=== PATIENT | female | born 1965 | race Caucasian/White ===

== ENCOUNTER 2018-07-22 12:31 | Outpatient (REF) | payer MEDICARE, MEDICAID, SELFPAY ==
--- NOTE | 2018-07-22 12:40 | PAPFT_PTH ---
PATIENT: Nubia Crump I LOC: [facility] U#:[id number] AGE/SX: 53/F ROOM: RE07/22/[address]: Crow Montiel : 1965 BED: DIS: 07/22/2018 SPEC #: [id number] RECD: 07/22/18 18:00 STATUS: MONIKA RELoreta #: [id number] SHAWN: 07/22/18 12:[address]: Crow Montiel DEPT: [facility] Cytology RECD BY: Anitha Velazco Tissues: 1 - CX/ENDOCX FOR PAP SMEARS Procedures: PAP THIN PREP/[facility] Screening HPV DNA PROBE Comments: [id number]
[2018-07-22 19:07] LABS: HCT 46.5 % (36.0-46.0); HGB 15.6 g/dL (12.0-15.5); Mean Corp. HGB Concentration 33.5 g/dL (32.0-36.0); Mean Corpuscular Volume 89.4 fL (80-95); Mean Platelet Volume 11.5 fL (8.0-11.0); Platelet Count 331 x1000/uL (130-400)
[2018-07-22 19:25] LABS: ALT 24 U/L (12-78); AST 26 U/L (15-37); Albumin 4.1 g/dL (3.4-5.0); Alkaline Phosphatase 102 U/L (46-116); Anion Gap 9.4 mmol/L (3-11); BUN 14 mg/dL (7-18); Bilirubin, Total 0.8 mg/dL (0.2-1.0); CO2 29.6 mmol/L (21.0-32.0); CREATININE 0.83 mg/dL (0.55-1.02); Calcium 9.7 mg/dL (8.5-10.1); Chloride 101 mmol/L (98-107); Glucose 92 mg/dL (70-100); Potassium 4.4 mmol/L (3.5-5.1); Sodium 140 mmol/L (136-145); Total Protein 7.7 g/dL (6.4-8.2)
[2018-07-22 19:26] LABS: Prothrombin Time 9.8 sec (9.3-11.0)
[2018-07-24 16:28] LABS: HCV RNA Detection Quantitative Undetected IU/mL (UNDECT)
== END 2018-07-22 12:51 ==
LOC: NCHCN 12:31
PROVIDERS: PCP Family Medicine; Visit Provider Family Medicine
DX: K74.60 Unspecified cirrhosis of liver (principal); Z12.4 Encounter for screening for malignant neoplasm of cervix; Z11.51 Encounter for screening for human papillomavirus (HPV); Z87.19 Personal history of other diseases of the digestive system
CPT/HCPCS: 80053; 85027; 88142; 85610; 87522; 87624

== ENCOUNTER 2018-11-12 15:48 | Outpatient (REF) | payer MEDICARE, MEDICAID, SELFPAY ==
[2018-11-12 19:34] LABS: Magnesium 2.3 mg/dL (1.8-2.4)
[2018-11-12 19:54] LABS: TSH (W/Ref FT4) 0.15 uIU/mL (0.36-3.74)
[2018-11-12 20:14] LABS: FREE T4 1.44 ng/dL (0.76-1.46)
== END 2018-11-12 16:08 ==
LOC: NCHCN 15:48
PROVIDERS: PCP Family Medicine; Visit Provider Family Medicine
DX: R25.2 Cramp and spasm (principal); R00.0 Tachycardia, unspecified
CPT/HCPCS: 83735; 84439; 84443

== ENCOUNTER 2019-04-08 15:28 | Outpatient (REF) | payer MEDICARE, MEDICAID, SELFPAY ==
[2019-04-08 19:32] LABS: HCT 47.4 % (36.0-46.0); HGB 15.9 g/dL (12.0-15.5); Mean Corp. HGB Concentration 33.5 g/dL (32.0-36.0); Mean Corpuscular Hemoglobin 30.6 pg (27.0-33.0); Mean Corpuscular Volume 91.3 fL (80-95); Mean Platelet Volume 10.9 fL (8.0-11.0); Platelet Count 379 x1000/uL (130-400); RBC 5.19 m/cumm (4.00-5.20); White Blood Cell Count 7.84 k/cumm (4.4-10.8)
[2019-04-08 19:43] LABS: ALT 18 U/L (14-59); AST 18 U/L (15-37); Alkaline Phosphatase 91 U/L (46-116); Anion Gap 8.3 mmol/L (3-11); BUN 18 mg/dL (7-18); Bilirubin, Total 0.7 mg/dL (0.2-1.0); CO2 30.7 mmol/L (21.0-32.0); CREATININE 0.79 mg/dL (0.55-1.02); Calcium 9.4 mg/dL (8.5-10.1); Chloride 103 mmol/L (98-107); Glucose 100 mg/dL (74-106); Potassium 4.5 mmol/L (3.5-5.1); Sodium 142 mmol/L (136-145); TSH (W/Ref FT4) 1.33 uIU/mL (0.36-3.74); Total Protein 7.5 g/dL (6.4-8.2)
== END 2019-04-08 15:48 ==
LOC: NCHCN 15:28
PROVIDERS: PCP Family Medicine; Visit Provider Family Medicine
DX: E05.90 Thyrotoxicosis, unspecified without thyrotoxic crisis or storm (principal); K74.60 Unspecified cirrhosis of liver
CPT/HCPCS: 80053; 85027; 84443

== ENCOUNTER 2019-04-13 00:39 | Outpatient (CLI) | payer MEDICARE, MEDICAID, SELFPAY ==
--- NOTE | 2019-04-13 07:23 | DI.US_ITS ---
EXAM: US ABDOMEN CLINICAL HISTORY: CIRRHOSIS, K74.60, HCC SCREENING TECHNIQUE: Ultrasound abdomen performed using standard protocol. COMPARISON: ABDOMEN ULTRASOUND (P) from 05/21/2017 FINDINGS: LIVER: There is increased echogenicity consistent with fatty infiltration. No hepatic mass is presen t. Liver is normal in size. There is hepatopetal flow through the portal vein. GALLBLADDER: No evidence of cholelithiasis. No evidence of wall thickening. No pericholecystic fluid identified. KIDNEYS: Kidneys are symmetric in size. No evidence of renal calculi. No evidence of hydronephrosis. There is a 1.2 centimeters cyst in the superior pole of the left kidney. BILIARY SYSTEM: Common bile duct measures up to 1 centimeter. This is unchanged compared to the prio r examination. SALINAS'S SIGN: Negative. PANCREAS: Normal where visualized. SPLEEN: Not enlarged. ABDOMINAL AORTA AND IVC: Visualized portions normal caliber. ASCITES: None seen. IMPRESSION: 1. Hepatic steatosis. No evidence of a hepatic mass. 2. Stable dilatation of the bile duct.
== END 2019-04-13 00:59 ==
PROVIDERS: PCP Family Medicine; Visit Provider Family Medicine
DX: K74.60 Unspecified cirrhosis of liver (principal); K76.0 Fatty (change of) liver, not elsewhere classified; N28.1 Cyst of kidney, acquired; K83.8 Other specified diseases of biliary tract
CPT/HCPCS: 76700

== ENCOUNTER 2019-10-21 16:37 | Outpatient (REF) | payer MEDICARE, MEDICAID, SELFPAY ==
[2019-10-21 19:32] LABS: HCT 48.1 % (36.0-46.0); Mean Corp. HGB Concentration 33.3 g/dL (32.0-36.0); Mean Corpuscular Hemoglobin 30.1 pg (27.0-33.0); Mean Corpuscular Volume 90.4 fL (80-95); Mean Platelet Volume 11.9 fL (8.0-11.0); Platelet Count 435 x1000/uL (130-400); RBC 5.32 m/cumm (4.00-5.20); RBC Distribution Width 13.9 % (11.7-14.6); White Blood Cell Count 10.53 k/cumm (4.4-10.8)
[2019-10-21 20:25] LABS: ALT 35 U/L (14-59); AST 37 U/L (15-37); Albumin 3.9 g/dL (3.4-5.0); Alkaline Phosphatase 92 U/L (46-116); Anion Gap 7.1 mmol/L (3-11); BUN 13 mg/dL (7-18); Bilirubin, Total 0.9 mg/dL (0.2-1.0); CO2 32.9 mmol/L (21.0-32.0); CREATININE 0.94 mg/dL (0.55-1.02); Calcium 9.2 mg/dL (8.5-10.1); Chloride 98 mmol/L (98-107); Glucose 105 mg/dL (74-106); Potassium 4.2 mmol/L (3.5-5.1); Sodium 138 mmol/L (136-145); Total Protein 7.4 g/dL (6.4-8.2)
== END 2019-10-21 16:57 ==
LOC: NCHCN 16:37
PROVIDERS: PCP Family Medicine; Visit Provider Family Medicine
DX: K74.60 Unspecified cirrhosis of liver (principal)
CPT/HCPCS: 80053; 85027

== ENCOUNTER 2019-11-02 00:33 | Outpatient (CLI) | payer MEDICARE, MEDICAID, SELFPAY ==
--- NOTE | 2019-11-02 | DI.US_ITS ---
EXAM: US ABDOMEN CLINICAL HISTORY: CIRRHOSIS, K74.60 TECHNIQUE: Ultrasound abdomen performed using standard protocol. COMPARISON: US US ABDOMEN from 04/13/2019 FINDINGS: ABDOMINAL AORTA AND IVC: Visualized portions normal caliber. PANCREAS: Normal where visualized. LIVER: Fatty infiltration. Hepatopedal flow in the Portal Vein. GALLBLADDER: No evidence of cholelithiasis. No evidence of wall thickening. No pericholecystic fluid identified. BILIARY SYSTEM: Common bile duct measures 6.1 mm. No intrahepatic biliary ductal dilation. SALINAS'S SIGN: Negative. KIDNEYS: Kidneys are symmetric in size. No evidence of renal calculi. No evidence of hydronephrosis. 0.8 x 0.7 x 0.9 cm simple cyst in the left kidney. SPLEEN: Not enlarged. ASCITES: None seen. IMPRESSION: Fatty liver. DATA REPOSITORY:
== END 2019-11-02 00:53 ==
PROVIDERS: PCP Family Medicine; Visit Provider Family Medicine
DX: K74.60 Unspecified cirrhosis of liver (principal); K76.0 Fatty (change of) liver, not elsewhere classified; N28.1 Cyst of kidney, acquired
CPT/HCPCS: 76700

== ENCOUNTER 2020-08-03 19:34 | Outpatient (REF) | payer OTHER, MEDICAID, SELFPAY ==
[2020-08-03 19:28] LABS: HCT 45.6 % (36.0-46.0); HGB 15.1 g/dL (11.2-15.7); MCHC 33.1 % (32.0-36.0); MCV 90.5 fL (80-95); MPV 10.9 fL (8.0-11.0); Platelet Count 380 10^3/uL (130-400); RBC 5.04 10^6/uL (3.93-5.22); RDW 13.3 % (11.7-14.6); RDW-SD 44.6 fL; WBC 12.01 10^3/uL (4.4-10.8)
[2020-08-03 19:49] LABS: ALT 23 U/L (14-59); AST 23 U/L (15-37); Albumin 4.2 g/dL (3.4-5.0); Alkaline Phosphatase 128 U/L (46-116); Anion Gap 8.5 mmol/L (3-11); BUN 20 mg/dL (7-18); Bilirubin, Total 0.9 mg/dL (0.2-1.0); CO2 28.5 mmol/L (21.0-32.0); CREATININE 0.8 mg/dL (0.55-1.02); Calcium 9.8 mg/dL (8.5-10.1); Chloride 101 mmol/L (98-107); Glucose 120 mg/dL (74-106); Potassium 4.3 mmol/L (3.5-5.1); Sodium 138 mmol/L (136-145); TSH (W/Ref FT4) 1.58 uIU/mL (0.36-3.74); Total Protein 7.7 g/dL (6.4-8.2)
== END 2020-08-03 19:35 | disposition home or self-care (01) ==
LOC: NCHCN 19:34
PROVIDERS: PCP Family Medicine; Visit Provider Family Medicine
DX: I10 Essential (primary) hypertension (principal); K74.60 Unspecified cirrhosis of liver
CPT/HCPCS: 80053; 85027; 84443

== ENCOUNTER 2020-09-30 01:30 | Outpatient (CLI) | payer OTHER, MEDICAID, SELFPAY ==
--- NOTE | 2020-09-30 | DI.US_ITS ---
Exam(s) US ABDOMEN EXAM: US ABDOMEN CLINICAL HISTORY: CIRRHOSIS, K74.60 TECHNIQUE: Ultrasound abdomen performed using standard protocol. COMPARISON: No exams were available for comparison FINDINGS: ABDOMINAL AORTA AND IVC: Visualized portions normal caliber. PANCREAS: Normal where visualized. LIVER: There is increased echogenicity of the liver. No hepatic mass is seen sonographically. Hepat opedal flow in the Portal Vein. The liver measures 13 cm in length. GALLBLADDER: No evidence of cholelithiasis. No evidence of wall thickening. No pericholecystic fluid identified. BILIARY SYSTEM: Common bile duct measures < 7 mm. No intrahepatic biliary ductal dilation. SALINAS'S SIGN: Negative. KIDNEYS: Kidneys are symmetric in size. No evidence of renal calculi. No evidence of hydronephrosis. No renal mass or cyst identified. SPLEEN: Not enlarged. ASCITES: None seen. IMPRESSION: Fatty liver. DATA REPOSITORY:
== END 2020-09-30 01:50 ==
PROVIDERS: PCP Family Medicine; Visit Provider Family Medicine
DX: K74.60 Unspecified cirrhosis of liver (principal); K76.0 Fatty (change of) liver, not elsewhere classified
CPT/HCPCS: 76700

== ENCOUNTER 2021-03-24 19:10 | Outpatient (REF) | payer OTHER, MEDICAID, SELFPAY ==
[2021-03-26 22:26] LABS: COVID-19 RT-PCR UVMMC Result Positive (Negative)
== END 2021-03-24 19:11 | disposition home or self-care (01) ==
LOC: LBN 19:10
PROVIDERS: PCP Family Medicine; Visit Provider Family Medicine
DX: Z20.822 Contact with and (suspected) exposure to COVID-19 (principal); J06.9 Acute upper respiratory infection, unspecified
CPT/HCPCS: U0003

== ENCOUNTER 2021-06-28 16:13 | Outpatient (REF) | payer OTHER, MEDICAID, SELFPAY ==
[2021-06-28 19:11] LABS: HCT 41.2 % (36.0-46.0); HGB 13.8 g/dL (11.2-15.7); MCH 29.8 pg (27.0-33.0); MCHC 33.5 % (32.0-36.0); MPV 11.3 fL (8.0-11.0); Platelet Count 457 10^3/uL (130-400); RBC 4.63 10^6/uL (3.93-5.22); RDW 13.5 % (11.7-14.6); RDW-SD 44.3 fL
[2021-06-28 19:23] LABS: INR 1.1 (0.9-1.1); Prothrombin Time 10.7 sec (9.3-11.0)
[2021-06-28 19:24] LABS: ALT 13 U/L (14-59); AST 18 U/L (15-37); Alkaline Phosphatase 114 U/L (46-116); Anion Gap 12.3 mmol/L (3-11); BUN 16 mg/dL (7-18); CO2 25.7 mmol/L (21.0-32.0); Calcium 9.6 mg/dL (8.5-10.1); Chloride 99 mmol/L (98-107); Estimated GFR 57.15 (mL/min/1.73m2); Glucose 146 mg/dL (74-106); Potassium 4.3 mmol/L (3.5-5.1); Sodium 137 mmol/L (136-145); Total Protein 7.1 g/dL (6.4-8.2)
== END 2021-06-28 16:14 | disposition home or self-care (01) ==
LOC: NCHCN 16:13
PROVIDERS: PCP Family Medicine; Visit Provider Family Medicine
DX: K74.60 Unspecified cirrhosis of liver (principal)
CPT/HCPCS: 80053; 85027; 85610